=== PATIENT | male | born 1955 | race Caucasian/White ===

== ENCOUNTER 2022-11-08 06:18 | Observation (INO) | payer BC, MEDICARE ==
[2022-11-05 12:45] VITALS: BMI 25.0
[2022-11-08] MEDS ORDERED: Vancomycin 1 GM VIAL ONE (06:24)
[2022-11-08] MEDS ORDERED: Fentanyl 250 MCG/5 ML VIAL ONE (06:41)
[2022-11-08 07:03] LABS: #Eosinphils 0.2 thou/uL (0.0-0.7); #Monocytes 0.5 thou/uL (0.11-0.59); #Neutrophils 4.6 thou/uL (1.40-6.50); %Basophils 0.6 % (0.0-1.0); %Eosinophils 2.5 % (0.0-10.0); %Lymphocytes 21.2 % (21.0-51.0); %Monocytes 7.3 % (0.0-10.0); %Neutrophils 68.1 % (42.0-75.0); Hematocrit 42.3 % (42.0-52.0); Hemoglobin 14.2 g/dL (14.0-18.0); Mean Corpuscular HGB CONC 33.6 g/dL (32.0-36.0); Mean Corpuscular Hemoglobin 30.7 pg (27.0-31.0); Mean Corpuscular Volume 91.4 fl (78.0-98.0); Mean Platelet Volume 9.6 fL (7.4-10.4); Platelet Count 283 10x3/uL (130-400); RBC Distribution Width 12.9 % (11.5-14.5); Red Blood Cell (RBC) Count 4.63 mill/uL (4.70-6.10); White Blood Cell (WBC) Count 6.7 10x3/uL (4.8-10.8)
[2022-11-08] MEDS ORDERED: Sodium Chloride 0.9% 100 ML ONE (07:15)
[2022-11-08] MEDS ORDERED: CEFAZOLIN 2 GM VIAL ONE (07:15)
[2022-11-08 07:24] LABS: Anion Gap 12 mmol/L (10-20); BUN (Urea Nitrogen) 16 mg/dL (8.4-25.7); Calc. Creatinine Clearance 120 mL/min (70-130); Calcium 9.8 mg/dL (7.8-10.44); Carbon Dioxide 23 mmol/L (23-31); Chloride 108 mmol/L (98-107); Estimated GFR 97; Glucose 188 mg/dL (80-115); Potassium 3.8 mmol/L (3.5-5.1); Sodium 139 mmol/L (136-145)
[2022-11-08] MEDS ORDERED: PROPOFOL 200 MG/20 ML VIAL ONE (07:28)
[2022-11-08] MEDS ORDERED: Ondansetron PF 4 MG/2 ML Vial ONE (07:28)
[2022-11-08] MEDS ORDERED: Dexamethasone 20 MG/5 ML VIAL ONE (07:28)
[2022-11-08] MEDS ORDERED: Lidocaine 1% PF 5 ML VIAL ONE (07:28)
[2022-11-08] MEDS ORDERED: Rocuronium Bromide 10 MG/ML (10ML VIAL) ONE (07:28)
[2022-11-08] MEDS ORDERED: Ketorolac Tromethamine 30 MG/ML VIAL ONE (07:28)
[2022-11-08] MEDS ORDERED: Albuterol HFA (OR) 200 PUFF INH ONE (07:28)
[2022-11-08] MEDS ORDERED: Promethazine HCl 25 MG/ML VIAL IM PRN (08:39)
[2022-11-08] MEDS ORDERED: Morphine Sulfate 2 MG/ML SYRINGE SLOW IVP PRN (08:39)
[2022-11-08] MEDS ORDERED: Ondansetron HCl/PF 4 MG/2 ML Vial IVP PRN (08:39)
[2022-11-08] MEDS ORDERED: PACU-Morphine 4MG/ML VIAL SLOW IVP PRN (08:39)
[2022-11-08] MEDS ORDERED: HYDROmorphone 2 MG/ML VIAL SLOW IVP PRN (08:39)
[2022-11-08] MEDS ORDERED: SUGAMMADEX SODIUM 200 MG/2 ML VIAL ONE (08:41)
[2022-11-08] MEDS ORDERED: diphenhydrAMINE 50 MG/ML VIAL IVP PRN (08:57)
[2022-11-08] MEDS ORDERED: Promethazine 25 MG TAB PO PRN (08:57)
[2022-11-08] MEDS ORDERED: Ondansetron PF 4 MG/2 ML Vial IVP PRN (08:57)
[2022-11-08] MEDS ORDERED: Cyclobenzaprine 10 MG TAB PO PRN (08:57)
[2022-11-08] MEDS ORDERED: Morphine 2 MG/ML VIAL SLOW IVP PRN (08:57)
[2022-11-08] MEDS ORDERED: Acetaminophen 325 MG TAB PO PRN (08:57)
[2022-11-08] MEDS ORDERED: traMADol HCl 50 MG TAB PO PRN (08:57)
[2022-11-08] MEDS ORDERED: Mag-Al 1200 mg/1200 mg/30 ML UDCUP PO PRN (08:57)
[2022-11-08] MEDS ORDERED: HYDROcodone/Acetaminophen 10/325 mg Tablet PO PRN ×2 (08:57)
[2022-11-08] MEDS ORDERED: Milk Of Magnesia 30 ML UDCUP PO PRN (08:57)
[2022-11-08] MEDS ORDERED: Losartan 25 MG TAB PO SCH (09:00)
[2022-11-08] MEDS: Hydrochlorothiazide 25 MG TAB PO SCH (09:00)
[2022-11-08] MEDS: Amlodipine 10 MG TAB PO SCH (09:00)
[2022-11-08] MEDS ORDERED: fentaNYL 50 mcg/mL 1 mL Vial ONE ×3 (09:10→10:52)
[2022-11-08] MEDS ORDERED: HYDROmorphone 2 MG/ML VIAL ONE (09:23)
[2022-11-08] MEDS ORDERED: hydrALAZINE 20 MG/ML VIAL ONE (09:53)
[2022-11-08] MEDS ORDERED: Promethazine HCl 25 MG/ML VIAL ONE (10:01)
[2022-11-08 11:14] LABS: Troponin I Less than 0.010 ng/mL (< 0.028)
[2022-11-08] MEDS: Sodium Chloride 0.9% 1,000 ML IV SCH ×2 (11:55→21:38)
[2022-11-08] MEDS: CEFAZOLIN 2 GM in Sodium Chloride 0.9% 100 ML IVPB SCH ×2 (14:03→21:36)
[2022-11-08] MEDS: metFORMIN 500 MG TAB PO SCH (17:27)
[2022-11-08] MEDS ORDERED: Gabapentin 300 MG CAP PO SCH (21:00)
[2022-11-08] MEDS ORDERED: Gabapentin 100 MG CAP PO SCH (21:00)
[2022-11-09] MEDS: CEFAZOLIN 2 GM in Sodium Chloride 0.9% 100 ML IVPB SCH ×2 (04:58→14:01)
[2022-11-09] MEDS: Amlodipine 10 MG TAB PO SCH (08:31)
[2022-11-09] MEDS: metFORMIN 500 MG TAB PO SCH (08:32)
[2022-11-09] MEDS: Hydrochlorothiazide 25 MG TAB PO SCH (08:32)
[2022-11-09] MEDS ORDERED: Losartan 25 MG TAB PO SCH (09:00)
[2022-11-09 11:46] VITALS: BP 158/70; TEMP 98.1
[2022-11-09] MEDS: Sodium Chloride 0.9% 1,000 ML IV SCH (14:04)
== END 2022-11-09 17:12 | disposition home or self-care (01) ==
LOC: SDC 06:18 → SURG B 09:00
PROVIDERS: ADMIT Neurological Surgery; ATTEND Neurological Surgery
PROC: 0SG007J Fusion of Lumbar Vertebral Joint with Autologous Tissue Substitute, Posterior Approach, Anterior Column, Open Approach (ICD-10-PCS; principal; 2022-11-08)
DX: M48.062 Spinal stenosis, lumbar region with neurogenic claudication (principal); M43.16 Spondylolisthesis, lumbar region; M54.16 Radiculopathy, lumbar region; I10 Essential (primary) hypertension; E11.9 Type 2 diabetes mellitus without complications
CPT/HCPCS: 36416; 80048; 84484; 85025; 93005; 93010; 96365; 96366; 96376; C1713; C1889; G0378; J0360; J1100; J1170; J1885; J2405; J2550; J2704; J3010; J3370; J3490; J7050